=== PATIENT | female | born 1980 | race Caucasian/White ===

== ENCOUNTER 2018-06-05 06:39 | Day surgery (SDC) | payer MEDICAID ==
[2018-06-05] MEDS ORDERED: Sodium Chloride 0.9% 10 ML Syringe FLUSH PRN (07:00)
[2018-06-05] MEDS ORDERED: Lactated Ringers 1,000 ML IV SCH (07:00)
[2018-06-05] MEDS ORDERED: Propofol 200 MG/20 ML SDV IV ONE (07:55)
[2018-06-05] MEDS ORDERED: Midazolam 1 MG/ML 2 ML SDV IV ONE (07:55)
--- NOTE | 2018-06-05 08:49 | PCM.OPNOTE ---
- General Post-Op/Procedure Note Date of Surgery/Procedure: 06/05/18 Operative Procedure(s): egd. c scope with bx Findings: normal gastric bypass anatomy normal colon Pre Op Diagnosis: hx of abd pain epigastric. diarrhea. sp gastric bypass Post-Op Diagnosis: nl exam for surgical hx Anesthesia Technique: MAC Primary Surgeon: Jose Mathews Anesthesia Provider: Veronique Courtney Pathology: random colon bx Complications: None Condition: Good Free Text/Narrative:: see dictation
--- NOTE | 2018-06-05 13:11 | OR ---
DATE OF OPERATION: 06/05/2018 SURGEON: Jose Mathews MD PROCEDURES PERFORMED: Upper endoscopy and colonoscopy with cold forceps biopsy. PREOPERATIVE DIAGNOSES: History of abdominal pain, diarrhea, and hematochezia. POSTOPERATIVE DIAGNOSES: Normal anatomy, status post gastric bypass, normal- appearing colon, and hemorrhoids. INDICATIONS FOR PROCEDURE: This is a 37-year-old white female who was referred with the above-mentioned complaints. Very hard to get a definitive history. She has a history of gastric bypass and some diarrhea. She has noticed occasional hematochezia. Complains of abdominal pain in various areas as well. She was offered and accepted an upper and lower endoscopy. DESCRIPTION OF PROCEDURE: After an excellent IV sedation was administered, the bite block was inserted. The flexible endoscope was passed without difficulty down the patient's esophagus. The scope was passed into the gastric remnant and down the efferent and afferent loops of the jejunal bypass. No marked abnormality was noted. The gastric pouch itself was unremarkable as was the esophagus. Air was aspirated. Our attention was then turned to the colon. Digital rectal exam was performed. She does have an external skin tag, otherwise unremarkable. Rectal exam was unremarkable. The flexible colonoscope was inserted and advanced to the cecum. The prep was excellent. The following findings were noted. Ascending colon, unremarkable. Transverse colon, unremarkable. Descending colon, unremarkable. Sigmoid and rectum, unremarkable. Random biopsies were taken due to her complaint of diarrhea. Colon was deflated. Scope was removed. The patient was taken to Recovery. Results via letter. /[id number] /[id number]
== END 2018-06-05 10:26 | disposition home or self-care (01) ==
LOC: FB.SDS 06:39
PROVIDERS: ATTEND Surgery
DX: R19.7 Diarrhea, unspecified (principal); K92.1 Melena; R10.13 Epigastric pain; K64.4 Residual hemorrhoidal skin tags; I10 Essential (primary) hypertension; F17.210 Nicotine dependence, cigarettes, uncomplicated; E66.9 Obesity, unspecified; Z68.31 Body mass index [BMI] 31.0-31.9, adult; K21.9 Gastro-esophageal reflux disease without esophagitis; F41.9 Anxiety disorder, unspecified; F32.9 Major depressive disorder, single episode, unspecified; Z98.84 Bariatric surgery status; Z79.899 Other long term (current) drug therapy
CPT/HCPCS: 43235; 45380; 88305; J2250; J2704; J7120